=== PATIENT | male | born 1995 ===

== ENCOUNTER → 2016-07-23 | Outpatient (CLI) | payer OTHER ==
--- NOTE | 2016-07-23 14:13 | DIAGNOSTIC IMAGING REPORT ---
LEFT THIRD FINGER RADIOGRAPHS CLINICAL HISTORY: Left third metacarpal fracture. COMPARISON: Left third finger radiograph July 02, 2016. FINDINGS: Alignment of the partially healed oblique mildly displaced fracture of the shaft of the left third metacarpal is unchanged since prior exam. Fracture line remains evident, best shown on lateral projection. IMPRESSION: Partial interval healing of the oblique fracture of the left third metacarpal. Fracture line remains evident. No change in alignment. Electronically signed by: Tien Graham M.D. 07/23/2016 2:11 PM
== END | disposition home or self-care (01) ==
LOC: C.RDSM 12:50
PROVIDERS: ATTEND Internal Medicine
DX: S62.323D Displaced fracture of shaft of third metacarpal bone, left hand, subsequent encounter for fracture with routine healing (principal); X58.XXXD Exposure to other specified factors, subsequent encounter

== ENCOUNTER → 2017-08-11 | Outpatient (CLI) | payer OTHER ==
--- NOTE | 2017-08-11 08:26 | DIAGNOSTIC IMAGING REPORT ---
R ANKLE MIN 3 VIEWS CLINICAL HISTORY: Right ankle and foot pain status post injury. COMPARISON: None FINDINGS: Alignment of the right ankle is anatomic. Talar dome is intact. There is mild lateral ankle soft tissue swelling. No acute fracture is identified. A 4 mm corticated ossific density along the dorsal aspect of the talar neck is likely old. There is a sclerotic margins. IMPRESSION: 1. No acute fracture or dislocation of the right ankle. 2. 4 mm corticated ossific density along the dorsal aspect of the talus which is likely old. 3. Mild lateral ankle soft tissue swelling. Electronically signed by: Tien Graham M.D. 08/11/2017 8:24 AM Dictated Date/Time: 08/11/2017 8:19 AM
--- NOTE | 2017-08-11 08:34 | DIAGNOSTIC IMAGING REPORT ---
RIGHT FOOT 3 VIEWS HISTORY: RIGHT FOOT AND ANKLE PAIN COMPARISON: None. FINDINGS: There is a fracture at the lateral base of the fifth metatarsal. The fragment appears be slightly sclerotic. There are also sclerotic edges at the fracture with incomplete fusion. Therefore, this favors an old nonunited fracture. No acute fracture or dislocation within the right foot. The Lisfranc joint is intact. Soft tissues are unremarkable. No radiopaque foreign bodies. IMPRESSION: 1. Old nonunited fracture at the lateral base of the fifth metatarsal. 2. No acute fracture or dislocation within the right foot. Electronically signed by: Zachary Aleman M.D. 08/11/2017 8:33 AM Dictated Date/Time: 08/11/2017 8:27 AM
== END | disposition home or self-care (01) ==
LOC: C.RDSM 18:46
PROVIDERS: ATTEND Internal Medicine
DX: M25.571 Pain in right ankle and joints of right foot (principal)

== ENCOUNTER → 2017-08-19 | Outpatient (CLI) | payer OTHER ==
--- NOTE | 2017-08-19 10:02 | DIAGNOSTIC IMAGING REPORT ---
RIGHT FOOT 3 VIEWS HISTORY: RIGHT FOOT PAIN COMPARISON: Right foot 08/11/2017. FINDINGS: No acute fracture or dislocation within the right foot. The Lisfranc joint is intact. Old nonunited fracture at the lateral base of the fifth metatarsal remains unchanged. Small avulsion injury at the dorsal aspect of the anterior talus is also unchanged. Soft tissues are unremarkable. No radiopaque foreign bodies. IMPRESSION: 1. No change compared to the prior study. 2. No acute fracture or dislocation within the right foot. 3. Old nonunited fracture at the lateral base of the fifth metatarsal. Electronically signed by: Zachary Aleman M.D. 08/19/2017 10:01 AM Dictated Date/Time: 08/19/2017 9:52 AM
== END | disposition home or self-care (01) ==
LOC: C.RDSM 09:30
PROVIDERS: ATTEND Internal Medicine
DX: M79.671 Pain in right foot (principal); Z87.81 Personal history of (healed) traumatic fracture